=== PATIENT | female | born 1985 | race Caucasian/White ===

== ENCOUNTER 2016-12-17 09:46 | Emergency (ER) | payer OTHER ==
[~2016-12-17] VITALS: Ht 165.1 cm; Wt 116.0 kg
[~2016-12-17 09:46] MED LIST: BACTDS PO; CEPH-443 PO; HYDR-3498 PO; NAPR-260 PO; SULF1TAB31 PO
[2016-12-17 09:49] VITALS: Ht 165.1 cm; Wt 116.0 kg
--- NOTE | 2016-12-17 11:38 | ERD ---
ER Documentation Chief Complaint Chief Complaint DIZZINESS , NAUSEA X 1 WEEK HPI 31y/o female patient with history of anemia,presents to the emergency department with mother c/o mild dizziness and nausea for the last 4 weeks but got worse 1 week ago. Denies fever, chills, N/V/D, no heavy periods. Positive history of previous episodes, the patient wants to be sure that her anemia is not getting worse. Treatment attempted: Iron [id number] but the patient is not very compliant with treatment ROS SYSTEMIC symptoms: no fever, chills, no night sweats, no weight loss EYE symptoms: No blurred vision, no eye discharge OTOLARYNGEAL symptoms: No hearing loss. No ear pain, no sore throat CARDIOVASCULAR symptoms: No chest pain or discomfort, no palpitations. PULMONARY symptoms: No dyspnea, no cough, no wheezing. GASTROINTESTINAL symptoms: No abdominal pain, no nausea, no vomiting, no diarrhea MUSCULOSKELETAL symptoms: No arthralgias, no muscle aches. NEUROLOGY symptoms: No confusion, no syncope, no numbness or tingling. SKIN no rashes All systems reviewed and are negative except as per history of present illness. Medications Home Meds Active Scripts Ferrous Sulfate* (Ferrous Sulfate*) 325 Mg Tabec, 325 MG PO BID, #60 TAB Prov:MARY YANG MD 12/17/16 Naproxen* (Naprosyn*) 500 Mg Tablet, 500 MG PO BID Y for PAIN AND/OR INFLAMMATION, #30 TAB Prov:ANUSHKA RODRIGUEZ PA-C 08/20/15 Hydrocodone Bit-Acetaminophen* (Preemption*) 5-325 Mg Tab, 1 TAB PO Q6 Y for PAIN, # 10 TAB Prov:ANUSHKA RODRIGUEZ PA-C 08/20/15 Cephalexin* (Keflex*) 500 Mg Capsule, 500 MG PO QID for 10 Days, CAP Prov:ANUSHKA RODRIGUEZ PA-C 11/21/14 Sulfamethoxazole-Trimethoprim* (Bactrim* DS) 800-160 Mg Tab, 1 TAB PO BID for 7 Days, TAB Prov:ANUSHKA RODRIGUEZ PA-C 11/21/14 Cephalexin* (Keflex*) 500 Mg Capsule, 500 MG PO QID, #40 CAP Prov:ANUSHKA RODRIGUEZ PA-C 08/15/14 Sulfamethoxazole-Trimethoprim (Bactrim DS Tablet) 800-160 Mg Tab, 1 TAB PO BID, #10 TAB Prov:NISH RODRIGUEZBET Maria A AGUILLON 08/15/14 Allergies Allergies: Coded Allergies: No Known Allergy (Unverified , 08/20/15) PMhx/Soc History of Surgery: No Anesthesia Reaction: No Hx Neurological Disorder: No Hx Respiratory Disorders: No Hx Cardiac Disorders: No Hx Psychiatric Problems: No Hx Miscellaneous Medical Probl: Yes (ANEMIA) Hx Alcohol Use: Yes Hx Substance Use: No Hx Tobacco Use: No Physical Exam Vitals Vital Signs Date Time Temp Pulse Resp B/P Pulse Ox O2 Delivery O2 Flow Rate FiO2 12/17/16 09:49 98.0 104 16 134/65 99 Physical Exam Patient is in no acute distress, vital signs stable. Alert and fully oriented. EYES: PERRLA, EOMI, Sclera and conjunctiva appear normal. EARS: Canals clear, tympanic membranes WNL THROAT: Normal oropharynx. NECK: Supple, No lymphadenopathy. Full ROM without pain or tenderness. HEART: RRR, no rubs, murmurs, clicks or gallops. LUNGS: Clear to auscultation. ABDOMEN: Soft, non-tender without masses or hepatosplenomegaly. EXTREMITIES: No edema bilaterally. MUSC: Full ROM, no deformity, normal back exam Result Diagram: 12/17/16 1156 12/17/16 1156 Results 24 hrs Laboratory Tests Test 12/17/16 11:56 12/17/16 12:00 White Blood Count 11.710^3/ul Red Blood Count 4.7310^6/ul Hemoglobin 10.9g/dl Hematocrit 36.0% Mean Corpuscular Volume 76.1fl Mean Corpuscular Hemoglobin 23.0pg Mean Corpuscular Hemoglobin Concent 30.3g/dl Red Cell Distribution Width 15.7% Platelet Count 29525^3/UL Mean Platelet Volume 10.1fl Neutrophils % 69.2% Lymphocytes % 21.1% Monocytes % 7.7% Eosinophils % 1.3% Basophils % 0.3% Nucleated Red Blood Cells % 0.0/100WBC Neutrophils # 8.110^3/ul Lymphocytes # 2.510^3/ul Monocytes # 0.910^3/ul Eosinophils # 0.210^3/ul Basophils # 0.010^3/ul Nucleated Red Blood Cells # 0.010^3/ul Activated Partial Thromboplast Time 31.9Sec Sodium Level 140mmol/L Potassium Level 4.3mmol/L Chloride Level 105mmol/L Carbon Dioxide Level 26mmol/L Anion Gap 13 Blood Urea Nitrogen 11mg/dl Creatinine 0.84mg/dl Glucose Level 92mg/dl Calcium Level 8.9mg/dl Total Bilirubin 0.1mg/dl Direct Bilirubin 0.00mg/dl Indirect Bilirubin 0.1mg/dl Aspartate Amino Transf (AST/SGOT) 23IU/L Alanine Aminotransferase (ALT/SGPT) 31IU/L Alkaline Phosphatase 179IU/L Total Protein 8.1g/dl Albumin 4.0g/dl Globulin 4.10g/dl Albumin/Globulin Ratio 0.97 Thyroid Stimulating Hormone (TSH) 4.260MIU/L Urine Color YELLOW Urine Clarity CLEAR Urine pH 6.0 Urine Specific [place] 1.017 Urine Ketones NEGATIVEmg/dL Urine Nitrite NEGATIVEmg/dL Urine Bilirubin NEGATIVEmg/dL Urine Urobilinogen NEGATIVEmg/dL Urine Leukocyte Esterase TRACELeu/ul Urine Microscopic RBC 3/HPF Urine Microscopic WBC 4/HPF Urine Bacteria FEW/HPF Urine Hemoglobin 1+mg/dL Urine Glucose NEGATIVEmg/dL Urine Total Protein NEGATIVEmg/dl Urine Test NEGATIVE Procedures/MDM 31y/o female patient with past medical history of anemia, presents to the ED c/ o increased fatigue and dizziness for 1 month. Vital signs stable, Physical exam remarkable. Differential diagnosis include but not limited to: Dehydration , electrolyte imbalance, thyroid disease, viral infectious disease, medication side effect, anemia. Pertinent Data: Labs: CBC: Hemoglobin 10.9, CMP: normal kidney and liver function, normal electrolytes. TSH: WNL Physical examination and clinical presentation consistent most likely with anemia. During the ED course the patient remained hemodynamically stable and asymptomatic. Results and medical impression discussed with patient who agrees with management. The patient will be discharged home with a Rx for ferrous sulfate If symptoms persist, worsen or new symptoms develop, then patient is instructed to follow-up with the primary care provider. If the patient is unable to see the primary care provider, then return to the ED immediately. Departure Diagnosis: Primary Impression: Anemia Additional Impression: Dizziness, nonspecific Condition: Stable Additional Instructions: Thank you very much for allowing us to participate in your care. Your health and safety is our top priority at [facility]. Have prescriptions filled and follow precisely the directions on the label. Follow-up with primary care provider during the next 4 days and bring all the information and medications prescribed. If illness has not improved in 2 days, then make an appointment with primary care provider. If the provider is unavailable, return to the Emergency Department immediately. MARY YANG MD Dec 17, 2016 11:38
[2016-12-17] MEDS ORDERED: FER325 PO (13:14)
[2016-12-17 13:24] VITALS: BP 124/75; PULSE 78; RESP 19; TEMP 98.5
== END 2016-12-17 13:35 | disposition home or self-care (01) ==
LOC: FTE 09:46
DX: D64.9 Anemia, unspecified (principal); R07.9 Chest pain, unspecified
CPT/HCPCS: 80053; 81001; 84443; 84703; 85025; 85730; Z7502; 99283

== ENCOUNTER 2017-07-10 09:41 | Emergency (ER) | END 2017-07-10 11:32 | disposition home or self-care (01) ==

== ENCOUNTER 2017-12-31 15:31 | Emergency (ER) | END 2017-12-31 18:11 | disposition home or self-care (01) ==

== ENCOUNTER 2018-05-03 11:26 | Emergency (ER) | payer SELFPAY ==
[~2018-05-03] VITALS: Ht 162.6 cm; Wt 131.0 kg
[~2018-05-03 11:26] MED LIST changes: -BACTDS PO; -CEPH-443 PO; +FER325 PO; +GUAI-637 PO; -HYDR-3498 PO; +IBUP-1542 PO; +IBUP800T48 PO; -NAPR-260 PO; +SODI126M NASAL; -SULF1TAB31 PO
[2018-05-03 12:01] VITALS: BP 169/73; PULSE 98; RESP 20; Ht 162.6 cm; Wt 131.0 kg
[2018-05-03] MEDS ORDERED: D-ME118S24 PO (15:47)
[2018-05-03] MEDS ORDERED: LORA10CA PO (15:48)
[2018-05-03] MEDS ORDERED: IBUP-1542 PO (15:48)
--- NOTE | 2018-05-03 15:54 | ERD ---
ER Documentation Chief Complaint Chief Complaint cough, body pain, weakness HPI 32-year-old female presents for cough and body pain times 2 days. She also states she has weakness. There is associated runny nose. The cough is produ ctive of phlegm. She also states she has decreased hearing on the left ear. She is unsure whether or not she has fever. She does have a past medical history anemia. ROS All systems reviewed and are negative except as per history of present illness. Medications Home Meds Active Scripts Ibuprofen* (Motrin*) 600 Mg Tab, 600 MG PO Q6H PRN for PAIN AND OR ELEVATED TEMP, #30 TAB Prov:LUIS E DEL RIO 05/03/18 Loratadine* (Claritin*) 10 Mg Capsule, 10 MG PO DAILY PRN for ear pain, #30 CAP Prov:LUIS E DEL RIO 05/03/18 D-Methorphan Hb/P-Epd HCl/Bpm (Captwhubjg-Pwscqoxeamf-Vf Syr) 118 Ml Syrup, 5 ML PO Q4H PRN for COUGH for 7 Days, #1 BOTTLE Prov:LUIS E DEL RIO 05/03/18 Guaifenesin* (Robitussin*) 100 Mg/5 Ml Syrup, 200 MG PO Q4H PRN for COUGH, #120 ML Prov:GABE SCHAEFER NP 12/31/17 Sodium Chloride (Saline Nasal Mist) 126 Ml Mist, 2 SPRAY NASAL Q2H PRN for NASAL CONGESTION, #1 BOTTLE Prov:GABE SCHAEFER. V[place] 12/31/17 Ibuprofen* (Motrin*) 600 Mg Tab, 600 MG PO Q6H PRN for PAIN AND OR ELEVATED TEMP, #30 TAB Prov:GABE SCHAEFER NP 12/31/17 Ibuprofen* (Motrin*) 800 Mg Tab, 800 MG PO Q6H PRN for PAIN AND OR ELEVATED TEMP, #30 TAB Prov:MICHAEL LEIGH MD 07/10/17 Reported Medications Ferrous Sulfate* (Ferrous Sulfate*) 325 Mg Tabec, 325 MG PO DAILY, TAB 07/10/17 Allergies Allergies: Coded Allergies: No Known Allergy (Unverified , 08/20/15) PMhx/Soc History of Surgery: No Anesthesia Reaction: No Hx Neurological Disorder: No Hx Respiratory Disorders: No Hx Cardiac Disorders: No Hx Psychiatric Problems: No Hx Miscellaneous Medical Probl: Yes (ANEMIA) Hx Alcohol Use: Yes Hx Substance Use: No Hx Tobacco Use: No Smoking Status: Never smoker Physical Exam Vitals Vital Signs Date Temp Pulse Resp B/P (MAP) Pulse Ox O2 O2 Flow FiO2 Time Delivery Rate 05/03/18 100.1 98 20 169/73 100 12:01 (105) Physical Exam Const: No acute distress Head: Atraumatic Eyes: Normal Conjunctiva ENT: Normal External Ears, bilateral tympanic membrane intact without erythema or bulging noted, nose and Mouth examination normal, no tonsillar swelling or exudate noted Neck: Full range of motion. No meningismus. Resp: Clear to auscultation bilaterally, no wheezing, rales, rhonchi Cardio: Regular rate and rhythm, no murmurs Skin: No petechiae or rashes Ext: No cyanosis, or edema Neur: Awake and alert Psych: Normal Mood and Affect Result Diagram: 05/03/18 1406 05/03/18 1406 Results 24 hrs Laboratory Tests Test 05/03/18 14:06 White Blood Count 15.7 10^3/ul Red Blood Count 4.78 10^6/ul Hemoglobin 9.4 g/dl Hematocrit 33.7 % Mean Corpuscular Volume 70.5 fl Mean Corpuscular Hemoglobin 19.7 pg Mean Corpuscular Hemoglobin Concent 27.9 g/dl Red Cell Distribution Width 18.0 % Platelet Count 454 10^3/UL Mean Platelet Volume 10.1 fl Immature Granulocytes % 0.600 % Neutrophils % 77.0 % Lymphocytes % 13.1 % Monocytes % 8.0 % Eosinophils % 1.0 % Basophils % 0.3 % Nucleated Red Blood Cells % 0.0 /100WBC Immature Granulocytes # 0.090 10^3/ul Neutrophils # 12.1 10^3/ul Lymphocytes # 2.1 10^3/ul Monocytes # 1.3 10^3/ul Eosinophils # 0.2 10^3/ul Basophils # 0.0 10^3/ul Nucleated Red Blood Cells # 0.0 10^3/ul Sodium Level 139 mmol/L Potassium Level 4.1 mmol/L Chloride Level 105 mmol/L Carbon Dioxide Level 23 mmol/L Anion Gap 11 Blood Urea Nitrogen 7 mg/dl Creatinine 0.70 mg/dl Est Glomerular Filtrat Rate mL/min > 60 mL/min Glucose Level 106 mg/dl Calcium Level 9.0 mg/dl Total Bilirubin 0.3 mg/dl Direct Bilirubin 0.00 mg/dl Indirect Bilirubin 0.3 mg/dl Aspartate Amino Transf (AST/SGOT) 27 IU/L Alanine Aminotransferase (ALT/SGPT) 32 IU/L Alkaline Phosphatase 163 IU/L Total Protein 8.1 g/dl Albumin 4.2 g/dl Globulin 3.90 g/dl Albumin/Globulin Ratio 1.07 Procedures/MDM Medical Decision Making: Differential diagnosis includes but not limited to upper respiratory infection, pneumonia, sepsis, meningitis. Patient appeared well on physical examination, nontoxic appearing. Lungs were clear to auscultation bilaterally. There is low suspicion for pneumonia, sepsis, meningitis. Patient likely has an upper respiratory infection, likely viral. Therefore antibiotics not indicated. Discussed symptomatic treatment with patient's parent who agrees with plan. Given patient's weakness and body aches decision was made to do some blood work. CBC: WBC 15.7, hemoglobin noted to be 9.4 CMP: no e/o severe acidosis, alkalosis, renal failure, diabetic ketoacidosis, liver disease Influenza swab was negative Chest x-ray unremarkable The elevated WBC is likely due to stress reaction. Advised to follow-up with her primary care physician for repeat blood work. Patient's chronic anemia is a macrocytic anemia. She is currently on iron supplements. She states that she has had this issue chronically and does not know why she has the anemia. Advised to follow with her care physician for possible referral to hematology Regarding patient's right ear decreased hearing, bilateral ear canal examination was unremarkable. There is no infection noted. Patient may have eustachian tube dysfunction. Patient given antihistamine. Advised that she may need to follow with ENT if symptoms do not improve. Patient given prescription for supportive medications. Patient advised to follow up with PCP in 1-2 days. Patient advised to return to ED for new or worsening symptoms. Patient stable on discharge from the ED. Disclaimer: Inadvertent spelling and grammatical errors are likely due to EHR/dictation software use and do not reflect on the overall quality of patient care. Also, please note that the electronic time recorded on this note does not necessarily reflect the actual time of the patient encounter. Departure Diagnosis: Primary Impression: URI (upper respiratory infection) URI type: unspecified URI Qualified Codes: J06.9 - Acute upper respiratory infection, unspecified Condition: Fair Patient Instructions: Preventing Common Respiratory Infections Additional Instructions: Call your primary care doctor TOMORROW for an appointment during the next 1-2 days.See the doctor sooner or return here if your condition worsens before your appointment time. LUIS E DEL RIO DO May 03, 2018 15:54
== END 2018-05-03 16:01 | disposition home or self-care (01) ==
LOC: FTE 11:26
DX: J06.9 Acute upper respiratory infection, unspecified (principal)
CPT/HCPCS: 71046; 80053; 85025; 87400

== ENCOUNTER 2018-05-24 10:24 | Emergency (ER) | payer SELFPAY ==
[~2018-05-24] VITALS: Ht 165.1 cm; Wt 130.8 kg
[~2018-05-24 10:24] MED LIST changes: +D-ME118S24 PO; +LORA10CA PO
[2018-05-24 10:34] VITALS: Ht 165.1 cm; Wt 130.8 kg
[2018-05-24] MEDS ORDERED: METH750T93 PO (14:35)
[2018-05-24] MEDS ORDERED: IBUP-1542 PO (14:35)
[2018-05-24] MEDS ORDERED: ACET-141 PO (14:35)
--- NOTE | 2018-05-24 14:41 | ERD ---
ER Documentation Chief Complaint Chief Complaint RT FLANK PAIN X1 WEEK HPI 32-year-old female with history of anemia and sciatica presents for right flank pain times 1 week. The pain is described as a 5 out of 10 constant pain, desc ribed as sharp, nonradiating. She states that the pain is worse with movement. She denies any dysuria. Denies fevers. She has been taking ibuprofen at home with mild relief. Otherwise denies chest pain or shortness of breath. Denies abdominal pain, nausea, vomiting. ROS All systems reviewed and are negative except as per history of present illness. Medications Home Meds Active Scripts Methocarbamol* (Robaxin*) 750 Mg Tablet, 750 MG PO TID PRN for MUSCLE SPASMS, #30 TAB Prov:LUIS E DEL RIO 05/24/18 Ibuprofen* (Motrin*) 600 Mg Tab, 600 MG PO Q6H PRN for PAIN AND OR ELEVATED TEMP, #30 TAB Prov:DEL RIOLUIS E 05/24/18 Acetaminophen* (Acetaminophen*) 500 MG Extra Strength Tablet, 500 MG PO Q4H PRN for PAIN AND OR ELEVATED TEMP, #30 TAB Prov:LUIS E DEL RIO 05/24/18 Ibuprofen* (Motrin*) 600 Mg Tab, 600 MG PO Q6H PRN for PAIN AND OR ELEVATED TEMP, #30 TAB Prov:LUIS E DEL RIO 05/03/18 Loratadine* (Claritin*) 10 Mg Capsule, 10 MG PO DAILY PRN for ear pain, #30 CAP Prov:LUIS E DEL RIO 05/03/18 D-Methorphan Hb/P-Epd HCl/Bpm (Ykzotyqrbj-Mlvzvbqydfj-Wt Syr) 118 Ml Syrup, 5 ML PO Q4H PRN for COUGH for 7 Days, #1 BOTTLE Prov:LUIS E DEL RIO 05/03/18 Guaifenesin* (Robitussin*) 100 Mg/5 Ml Syrup, 200 MG PO Q4H PRN for COUGH, #120 ML Prov:GABE SCHAEFER NP 12/31/17 Sodium Chloride (Saline Nasal Mist) 126 Ml Mist, 2 SPRAY NASAL Q2H PRN for NASAL CONGESTION, #1 BOTTLE Prov:GABE SCHAEFER [employer]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 12/31/17 Ibuprofen* (Motrin*) 600 Mg Tab, 600 MG PO Q6H PRN for PAIN AND OR ELEVATED TEMP, #30 TAB Prov:GABE SCHAEFER NP 12/31/17 Ibuprofen* (Motrin*) 800 Mg Tab, 800 MG PO Q6H PRN for PAIN AND OR ELEVATED TEMP, #30 TAB Prov:MICHAEL LEIGH MD 07/10/17 Reported Medications Ferrous Sulfate* (Ferrous Sulfate*) 325 Mg Tabec, 325 MG PO DAILY, TAB 07/10/17 Allergies Allergies: Coded Allergies: No Known Allergy (Unverified , 08/20/15) PMhx/Soc History of Surgery: No Anesthesia Reaction: No Hx Neurological Disorder: No Hx Respiratory Disorders: No Hx Cardiac Disorders: No Hx Psychiatric Problems: No Hx Miscellaneous Medical Probl: Yes (ANEMIA) Hx Alcohol Use: Yes Hx Substance Use: No Hx Tobacco Use: No Physical Exam Vitals Vital Signs Date Temp Pulse Resp B/P (MAP) Pulse Ox O2 O2 Flow FiO2 Time Delivery Rate 05/24/18 98.9 97 20 168/104 100 10:34 (125) Physical Exam Const: No acute distress Resp: Clear to auscultation bilaterally Cardio: Regular rate and rhythm, no murmurs Abd: Soft, non distended. Normal bowel sounds, nontender to palpation, no McBurney's point tenderness, no Kohler sign, no rebound or guarding noted Skin: No petechiae or rashes Back: There is right flank tenderness to palpation Ext: No cyanosis, or edema Neur: Awake and alert, bilateral upper and lower extremity sensation intact Psych: Normal Mood and Affect Result Diagram: 05/24/18 1330 05/24/18 1330 Results 24 hrs Laboratory Tests Test 05/24/18 13:05 05/24/18 13:30 POC Beta HCG, Qualitative NEGATIVE White Blood Count 10.4 10^3/ul Red Blood Count 4.92 10^6/ul Hemoglobin 9.7 g/dl Hematocrit 34.5 % Mean Corpuscular Volume 70.1 fl Mean Corpuscular Hemoglobin 19.7 pg Mean Corpuscular Hemoglobin Concent 28.1 g/dl Red Cell Distribution Width 18.4 % Platelet Count 573 10^3/UL Mean Platelet Volume 9.7 fl Immature Granulocytes % 0.500 % Neutrophils % 69.8 % Lymphocytes % 21.0 % Monocytes % 6.7 % Eosinophils % 1.7 % Basophils % 0.3 % Nucleated Red Blood Cells % 0.0 /100WBC Immature Granulocytes # 0.050 10^3/ul Neutrophils # 7.3 10^3/ul Lymphocytes # 2.2 10^3/ul Monocytes # 0.7 10^3/ul Eosinophils # 0.2 10^3/ul Basophils # 0.0 10^3/ul Nucleated Red Blood Cells # 0.0 10^3/ul Urine Color YELLOW Urine Clarity CLEAR Urine pH 6.0 Urine Specific [place] 1.011 Urine Ketones NEGATIVE mg/dL Urine Nitrite NEGATIVE mg/dL Urine Bilirubin NEGATIVE mg/dL Urine Urobilinogen NEGATIVE mg/dL Urine Leukocyte Esterase NEGATIVE [place]/ul Urine Microscopic RBC 2 /HPF Urine Microscopic WBC 0 /HPF Urine Squamous Epithelial Cells FEW /HPF Urine Hemoglobin 1+ mg/dL Urine Glucose NEGATIVE mg/dL Urine Total Protein NEGATIVE mg/dl Sodium Level 140 mmol/L Potassium Level 4.3 mmol/L Chloride Level 107 mmol/L Carbon Dioxide Level 26 mmol/L Anion Gap 7 Blood Urea Nitrogen 7 mg/dl Creatinine 0.75 mg/dl Est Glomerular Filtrat Rate mL/min > 60 mL/min Glucose Level 99 mg/dl Calcium Level 9.2 mg/dl Total Bilirubin 0.5 mg/dl Direct Bilirubin 0.00 mg/dl Indirect Bilirubin 0.5 mg/dl Aspartate Amino Transf (AST/SGOT) 29 IU/L Alanine Aminotransferase (ALT/SGPT) 23 IU/L Alkaline Phosphatase 174 IU/L Total Protein 8.1 g/dl Albumin 4.2 g/dl Globulin 3.90 g/dl Albumin/Globulin Ratio 1.07 Lipase 68 U/L Procedures/MDM Medical Decision Making: Differential diagnosis includes but not limited to acute gastritis, acute gastroenteritis, appendicitis, cholecystitis, pancreatitis, nephrolithiasis. Patient appeared well on physical exam. Nontoxic appearing. There was right flank tenderness to palpation. ED course: Labs: CBC showed anemia hemoglobin 9.7, no elevated WBC to suggest infection CMP showed no electrolyte abnormalities, there was normal kidney function, alk phos mildly elevated otherwise liver function normal Lipase was normal Urine was negative UA was negative for infection Imaging: X-ray Abdomen 1V Interpreted by me: Free Air: None Bowel Gas: Nonspecific Soft Tissue: Normal There is low suspicion for an acute abdomen at this point. No evidence of a kidney stone. Patient's flank pain possibly due to muscular skeletal origin. Prescription(s): Patient given prescription for supportive medications . Patient advised to follow up with PCP in 1-2 days. Patient advised to return to ED for new or worsening symptoms. Patient stable on discharge from the ED. Disclaimer: Inadvertent spelling and grammatical errors are likely due to EHR/dictation software use and do not reflect on the overall quality of patient care. Also, please note that the electronic time recorded on this note does not necessarily reflect the actual time of the patient encounter. Departure Diagnosis: Primary Impression: Flank pain Condition: Fair Patient Instructions: Flank Pain, Uncertain Cause Referrals: [facility] YOU HAVE RECEIVED A MEDICAL SCREENING EXAM AND THE RESULTS INDICATE THAT YOU DO NOT HAVE A CONDITION THAT REQUIRES URGENT TREATMENT IN THE EMERGENCY DEPARTMENT. FURTHER EVALUATION AND TREATMENT OF YOUR CONDITION CAN WAIT UNTIL YOU ARE SEEN IN YOUR DOCTORS OFFICE WITHIN THE NEXT 1-2 DAYS. IT IS YOUR RESPONSIBILITY TO MAKE AN APPOINTMENT FOR FOLOW-UP CARE. IF YOU HAVE A PRIMARY DOCTOR --you should call your primary doctor and schedule an appointment IF YOU DO NOT HAVE A PRIMARY DOCTOR YOU CAN CALL OUR PHYSICIAN REFERRAL HOTLINE AT IF YOU CAN NOT AFFORD TO SEE A PHYSICIAN YOU CAN CHOSE FROM THE FOLLOWING [facility] [address] [facility]. [facility] [address] [facility]. [facility] [address] [facility] [facility] [address] [facility]. [facility] [address] [facility]. [facility]. [address] [place] Additional Instructions: Call your primary care doctor TOMORROW for an appointment during the next 1-2 days.See the doctor sooner or return here if your condition worsens before your appointment time. LUIS E DEL RIO DO May 24, 2018 14:41
[2018-05-24 14:43] VITALS: BP 138/74; PULSE 69; RESP 18
== END 2018-05-24 14:44 | disposition home or self-care (01) ==
LOC: FTE 10:24
DX: R10.9 Unspecified abdominal pain (principal)
CPT/HCPCS: 36415; 74018; 80053; 81001; 81025; 83690; 85025